=== PATIENT | female | born 1945 | race Caucasian/White ===

== ENCOUNTER 2017-05-22 07:32 | Day surgery (SDC) | payer MEDICARE, BC ==
[2017-05-22] MEDS ORDERED: Lactated Ringers 1,000 ML IV SCH (08:15)
[2017-05-22] MEDS ORDERED: Propofol 200 MG/20 ML SDV ONE (09:13)
[2017-05-22] MEDS ORDERED: fentaNYL 100 MCG/2 ML SDV ONE (09:13)
[2017-05-22] MEDS ORDERED: Midazolam 1 MG/ML 2 ML SDV ONE (09:13)
[2017-05-22 10:59] VITALS: BP 110/71
--- NOTE | 2017-05-23 08:55 | OR ---
DATE OF PROCEDURE: 05/22/2017 PREOPERATIVE DIAGNOSIS: Colon cancer screening. POSTOPERATIVE DIAGNOSIS: Two small colon polyps, 35 cm from anal verge and right colon. PROCEDURE PERFORMED: Colonoscopy to the cecum with biopsy resection of two small colon polyps. SURGEON: Reed Aquino MD ANESTHESIA: IV anesthesia with monitored anesthesia care. INDICATIONS: This 72-year-old white female is referred for a colonoscopy for colon cancer screening. She says her last colonoscopic exam, she believes was more than 10 years ago in [place]. I counseled her for the procedure including the risks and alternatives , and she gave her informed consent to proceed. DESCRIPTION OF PROCEDURE: The patient was placed in the left lateral decubitus position. IV anesthesia was administered by the Anesthesia Service. Time-out was held. A rectal exam was performed, which was unremarkable. The flexible video Olympus colonoscope was introduced through her anus, up her rectum, and out her colon all the way to the cecum. En route, at 35 cm from anal verge, we saw a small polyp, which was removed with the biopsy forceps. Once the cecum was reached, the scope was slowly withdrawn. In the right colon, we saw a small polyp, which was removed with the biopsy forceps and sent to Pathology. The scope was withdrawn further with no other lesions noted. The scope was retroflexed in the rectum with the distal rectum appearing unremarkable. The scope was straightened and removed. She tolerated the procedure well. Reed Aquino MD /[id number]
== END 2017-05-22 11:15 | disposition home or self-care (01) ==
LOC: JP.SDS 07:32
PROVIDERS: ATTEND Surgery
DX: Z12.11 Encounter for screening for malignant neoplasm of colon (principal); D12.2 Benign neoplasm of ascending colon; D12.6 Benign neoplasm of colon, unspecified; I10 Essential (primary) hypertension; K21.9 Gastro-esophageal reflux disease without esophagitis
CPT/HCPCS: 45380; J2250; J2704; J3010; J7120; 88305

== ENCOUNTER 2017-07-18 07:09 | Day surgery (SDC) | payer MEDICARE, BC ==
[2017-07-18] MEDS ORDERED: Dextrose 5%-Lactated Ringers 1,000 ML IV SCH (08:00)
--- NOTE | 2017-07-18 08:43 | CR ---
Wrist Comp Min 3V Rt HISTORY: fell at home, right wrist pain and edema FINDINGS: There is a mildly comminuted and impacted transverse fracture distal metaphysis right radiu s. Mild dorsal angulation and about 7 mm of dorsal displacement are seen. There is also a minimally d isplaced oblique fracture styloid process of the ulna. No other fracture or dislocation is identified . Carpal bone alignment is satisfactory. Surgical pin is noted at the base of the first metacarpal. B rj structures are diffusely osteopenic. IMPRESSION: Acute Colles' fracture right wrist. The fracture of the distal metaphysis right radius is mildly comminuted and impacted with dorsal displacement and angulation. Styloid process fracture of the ulna is minimally displaced. Generalized osteopenia is noted.
[2017-07-18] MEDS ORDERED: Glycopyrrolate 0.2 MG/ML 2 ML SDV IVPUSH ONE (08:45)
[2017-07-18] MEDS ORDERED: Midazolam 1 MG/ML 2 ML SDV ONE (10:29)
[2017-07-18] MEDS ORDERED: fentaNYL 100 MCG/2 ML SDV ONE (10:29)
[2017-07-18] MEDS ORDERED: Propofol 200 MG/20 ML SDV ONE (10:29)
[2017-07-18] MEDS ORDERED: Lidocaine 1% 2 ML ONE (11:47)
[2017-07-18 13:07] VITALS: BP 136/83
[2017-07-18] MEDS ORDERED: Acetaminophen/HYDROcodone 325-5 MG Tab PO ONE (13:20)
--- NOTE | 2017-07-18 13:42 | CR ---
Wrist 2V Rt HISTORY: FX RIGHT WRIST REDUCTION IN OR FINDINGS: A single portable PA view was obtained. Transverse fracture distal metaphysis right radius and nondisplaced ulnar styloid fracture are redemonstrated. Alignment in this view appears satisfacto ry. I cannot evaluate for reduction of the dorsal displacement and angulation seen on the prior study as a lateral view was not obtained.
--- NOTE | 2017-07-26 14:57 | OR ---
DATE OF PROCEDURE: 07/18/2017 PREOPERATIVE DIAGNOSIS: Iron-deficiency anemia associated with positive FIT test. POSTOPERATIVE DIAGNOSES: 1. Iron-deficiency anemia associated with positive FIT test. a. Normal upper gastrointestinal endoscopy status post Robin-en-Y gastric bypass. b. Normal colonoscopic examination. OPERATIVE PROCEDURES: 1. Upper gastrointestinal endoscopy with biopsies of gastric pouch for CLOtest. 2. Flexible colonoscopy. ANESTHESIA: IV sedation. INDICATION FOR PROCEDURE: A 72-year-old presenting with some iron deficiency anemia with positive FIT test. She is undergoing upper and lower endoscopy with biopsies and/or polypectomy as indicated. Potential risks including bleeding and perforation were discussed, and the patient wishes to proceed. The patient, on coming to the hospital in the morning, fell and had an obvious Colles' fracture involving the right wrist. After being seen in the ER, decision was made to do a closed reduction of the Colles' fracture, at the same time as doing the upper and lower endoscopy. Potential risks of the procedure including bleeding and perforation were discussed and the patient wishes to proceed. DETAILS OF PROCEDURE: The patient was taken to the operating room and placed initially in a supine position. Colles' fracture was then reduced per Officer, and after actual confirmation of adequate reduction was accomplished, fixation was applied and that phase of the procedure concluded. This will be dictated in a separate heading per Officer. With the patient in left lateral decubitus position with care taken to avoid any significant manipulation of the right forearm and wrist, the upper GI endoscope was passed orally through the length of the esophagus into the gastric pouch and from there roughly 20 cm into the Robin limb. This examination was essentially entirely normal with their being no stricturing or areas of inflammation, no blood or bleeding. The biopsies were obtained from the gastric pouch, sent for CLOtest for H. pylori. Minimal bleeding from the biopsy site was seen. The procedure then concluded. Attention was then taken to the colonoscopy. Initial digital rectal exam was performed and was unremarkable. Colonoscope was passed into the level of the rectum with retroflexion revealing uncomplicated hemorrhoidal columns. The scope was eventually passed to the level of the cecum. The prep was generally good with there only being some scattered liquid and solid stool present. To that level, no abnormalities were noted. Specifically, there was no blood or bleeding and no areas of diverticular disease. No colitis and no polyps or other signs of neoplasia. The scope was then withdrawn, the above findings reconfirmed, and the procedure was concluded. The patient was taken to the recovery room in satisfactory condition. Kevon Rangel MD /[id number]
== END 2017-07-18 14:17 | disposition home or self-care (01) ==
LOC: JP.SDS 07:09
PROVIDERS: ATTEND Surgery
DX: D50.9 Iron deficiency anemia, unspecified (principal); R19.5 Other fecal abnormalities; S52.531A Colles' fracture of right radius, initial encounter for closed fracture; W19.XXXA Unspecified fall, initial encounter
CPT/HCPCS: 73100-26-RT; 73100-RT; 73110-26-RT; 73110-RT; 87081; A9270-GY; J2250; J2704; J3010; J7042

== ENCOUNTER 2017-07-18 09:00 | Emergency (ER) | payer MEDICARE, BC ==
[2017-07-18 09:14] VITALS: BP 129/81
[2017-07-18] MEDS ORDERED: HYDROmorphone 1 MG/ML Syringe IVPUSH ONE (10:00)
--- NOTE | 2017-07-18 11:20 | EDM.PDOC ---
ED HPI GENERAL MEDICAL PROBLEM - General Chief Complaint: Upper Extremity Injury/Pain Stated Complaint: MEDICAL FROM ACU Time Seen by Provider: 07/18/17 10:00 Source of Information: Reports: Patient, Family, RN Notes Reviewed History Limitations: Reports: No Limitations - History of Present Illness INITIAL COMMENTS - FREE TEXT/NARRATIVE: 72-year-old female presents emergency department today with a right wrist fracture, she was set to undergo colonoscopy this morning unfortunately she had fallen at home on outstretched hand right side injured herself reported for colonoscopy the procedure was canceled underwent x-ray which demonstrated a acute Colles' fracture slightly comminuted radius. Subsequent transferred to the emergency department for further evaluation. Right Wrist Pain Score (Numeric/FACES): 10 - Related Data Allergies Allergy/AdvReac Type Severity Reaction Status Date / Time lisinopril Allergy Swollen Verified 07/18/17 07:45 Tongue Home Meds: Home Meds Gabapentin [Gabapentin] 100 mg PO BID 12/08/16 [History] Hydrochlorothiazide [Hydrochlorothiazide] 25 mg PO DAILY 12/08/16 [History] Omeprazole [Omeprazole] 20 mg PO DAILY 12/08/16 [History] buPROPion HCl [Bupropion Xl] 200 mg PO BID 12/08/16 [History] Aspirin [Adult Low Dose Aspirin EC] 81 mg PO DAILY 05/21/17 [History] Calcium Citrate/Vitamin D3 [Calcium Citrate - Vit D Caplet] 1 each PO BID [History] Cholecalciferol (Vitamin D3) [Vitamin D3] 1,000 unit PO BID 05/21/17 [History] Cyanocobalamin (Vitamin B-12) [Cyanocobalamin Injection] 1,000 mcg IJ .QWEEKLY 05/21/17 [History] Cyanocobalamin (Vitamin B-12) [Vitamin B-12] 2,500 mcg SL DAILY 05/21/17 [ History] Multivitamin with Minerals [Multiple Vitamin] 1 tab PO DAILY 05/21/17 [History] Estradiol [Estrace] 1 mg PO DAILY 07/16/17 [History] FLUoxetine HCl [Prozac] 40 mg PO DAILY 07/16/17 [History] Iron Vitamin C 1 tab PO DAILY 07/16/17 [History] Past Medical History HEENT History: Reports: Cataract, Impaired Vision Cardiovascular History: Reports: Hypertension Gastrointestinal History: Reports: Bowel Obstruction, Cholelithiasis, GERD PROVIDER NETWORK MGR History: Reports: , Spontaneous Musculoskeletal History: Reports: Arthritis, Fibromyalgia Psychiatric History: Reports: Anxiety, Depression, Panic Attack Endocrine/Metabolic History: Reports: Diabetes, Type II Hematologic History: Reports: B12 Deficiency Oncologic (Cancer) History: Reports: Other (See Below) Other Oncologic History: side of face not sure - Infectious Disease History Infectious Disease History: Reports: Chicken Pox, Measles, Mumps - Past Surgical History HEENT Surgical History: Reports: Cataract Surgery Cardiovascular Surgical History: Reports: None GI Surgical History: Reports: Appendectomy, Bariatric Procedure, Cholecystectomy , Colonoscopy, EGD, Esophageal Dilatation, Small Bowel Female Surgical History: Reports: Breast Biopsy, Hysterectomy, Salpingo- Oophorectomy Endocrine Surgical History: Reports: None Musculoskeletal Surgical History: Reports: Carpal Tunnel Oncologic Surgical History: Reports: Other (See Below) Other Oncologic Surgeries/Procedures: side of face Social & Family History - Family History Family Medical History: Noncontributory - Tobacco Use Smoking Status *Q: Never Smoker Second Hand Smoke Exposure: No - Caffeine Use Caffeine Use: Reports: Coffee - Alcohol Use Days Per Week of Alcohol Use: 0 Number of Drinks Per Day: 2 Total Drinks Per Week: 0 - Recreational Drug Use Recreational Drug Use: No Review of Systems - Review of Systems Review Of Systems: See Below Constitutional: Reports: No Symptoms Musculoskeletal: Reports: Joint Pain (Right wrist) Skin: Reports: Bruising Neurological: Reports: No Symptoms ED EXAM, GENERAL - Physical Exam Exam: See Below Free Text/Narrative:: Examination of the upper extremity on the right side there is no tenderness at the shoulder no tenderness at the elbow there is an obvious deformity at the right wrist with bruising and ecchymosis appreciated around the wrist she has full range of motion of all digits although limited by pain, radial pulse is +2 and sensation is intact Exam Limited By: No Limitations General Appearance: Alert, WD/WN, No Apparent Distress ED TRAUMA EXTREMITY PROCEDURES - Splinting Right Upper Extremity Splint Site: Wrist Pre-Procedure NV Status: Normal Post-Procedure NV Status: Normal Splint Material: Fiberglass Splint Design: Volar Applied & Form Fitted By: Provider Provider Post-Splint Application NV Check: NV Status Normal, Good Position Complications: No Progress/Comments: Elected to perform this procedure in the colonoscopy suite as her fracture did require some post reduction, this was done per anesthesia's recommendation asked to be only under the effects of anesthesia one time. Please see TEMPERATURE REGULATOR notes for details, after adequate anesthesia a traction countertraction technique was used to align the distal radius pedal pulse was +2 after good position post reduction film was placed followed by splinting process in the usual fashion Course - Vital Signs Last Recorded V/S: Last Vital Signs Temp 96.3 F 07/18/17 09:23 Pulse 67 07/18/17 09:23 Resp 16 07/18/17 09:23 BP 129/81 07/18/17 09:23 Pulse Ox 97 07/18/17 09:23 - Orders/Labs/Meds Meds: Medications Discontinued Medications Generic Name Dose Route Start Last Admin Trade Name Berta PRN Reason Stop Dose Admin Hydromorphone HCl 1 mg 07/18/17 10:00 07/18/17 10:08 Dilaudid IVPUSH 07/18/17 10:01 1 mg ONETIME ONE Administration Departure - Departure Time of Disposition: 11:20 Disposition: Still A Patient 30 Condition: Good Clinical Impression: Colles' fracture of right radius, initial encounter for closed fracture - Discharge Information Referrals: Lizet Lopez PA [Primary Care Provider] - - Assessment/Plan Plan: Assessment Acuity = acute Site and laterality = distal radius fracture mildly displaced and comminuted Etiology = secondary to a fall at home Manifestations = pain and bruising Location of injury = Home Lab values = x-rays describe the fractures above Plan After splint was placed while under anesthesia, the original planned procedure of colonoscopy and EGD were proceeded with, she does have a follow-up appointment with orthopedics in 1 week she will remain in the splint at that time Patient was in agreement with the plan all questions were answered, they were instructed to return to the emergency department or call for worsening symptoms. This note was dictated using Connect voice recognition software please call with any questions.
== END 2017-07-18 10:23 | disposition still patient (30) ==
LOC: JP.ED 09:00
DX: S52.531A Colles' fracture of right radius, initial encounter for closed fracture (principal); I10 Essential (primary) hypertension; K21.9 Gastro-esophageal reflux disease without esophagitis; F41.0 Panic disorder [episodic paroxysmal anxiety]; F32.9 Major depressive disorder, single episode, unspecified; E11.9 Type 2 diabetes mellitus without complications; Z98.84 Bariatric surgery status; Z90.49 Acquired absence of other specified parts of digestive tract; Z90.710 Acquired absence of both cervix and uterus; Z90.721 Acquired absence of ovaries, unilateral; Z98.890 Other specified postprocedural states; Z79.82 Long term (current) use of aspirin; Z79.899 Other long term (current) drug therapy; Z88.8 Allergy status to other drugs, medicaments and biological substances; W01.0XXA Fall on same level from slipping, tripping and stumbling without subsequent striking against object, initial encounter; Y92.009 Unspecified place in unspecified non-institutional (private) residence as the place of occurrence of the external cause
CPT/HCPCS: 25605; 29125; 73100; 73110; 87081; 96374; 99284; A9270; J1170; J2250; J2704; J3010; J7042

== ENCOUNTER 2017-07-30 06:24 | Day surgery (SDC) | payer MEDICARE, BC ==
[2017-07-30] MEDS ORDERED: Lactated Ringers 1,000 ML IV SCH (07:00)
[2017-07-30] MEDS ORDERED: ceFAZolin 2 GM in Premix Bag 1 BAG IV ONE (07:00)
[2017-07-30] MEDS ORDERED: ceFAZolin 2 GM in Sodium Chloride 0.9% 50 ML IV ONE (07:00)
[2017-07-30] MEDS ORDERED: Povidone-Iodine 10% Soln 118.25 ML Bottle ONE (07:02)
[2017-07-30] MEDS ORDERED: Bupivacaine 0.5% 50 ML MDV ONE (07:02)
[2017-07-30] MEDS ORDERED: Rocuronium 50 MG/5 ML Vial ONE (07:17)
[2017-07-30] MEDS ORDERED: Propofol 200 MG/20 ML SDV ONE (07:17)
[2017-07-30] MEDS ORDERED: Ondansetron 4 MG/2 ML SDV ONE (07:17)
[2017-07-30] MEDS ORDERED: Glycopyrrolate 0.2 MG/ML 5 ML MDV ONE (07:17)
[2017-07-30] MEDS ORDERED: Neostigmine Methylsulfate 1 MG/ML 5 ML Syringe ONE (07:17)
[2017-07-30] MEDS ORDERED: Succinylcholine 200 MG/10 ML MDV ONE (07:17)
[2017-07-30] MEDS ORDERED: Dexamethasone 4 MG/ML SDV ONE (07:17)
[2017-07-30] MEDS ORDERED: fentaNYL 100 MCG/2 ML SDV IVPUSH ONE (09:10)
[2017-07-30 10:01] VITALS: BP 159/85
--- NOTE | 2017-07-31 11:47 | OR ---
DATE OF PROCEDURE: 07/30/2017 PREOPERATIVE DIAGNOSIS: Right distal radius fracture. POSTOPERATIVE DIAGNOSIS: Right distal radius fracture. PROCEDURES: 1. Open reduction and internal fixation of right distal radius fracture. 2. Application of short-arm splint. LICENSED FUNERAL DIRECTOR AND EMBALMER: CAITLIN Robledo. ANESTHESIA: General endotracheal intubation. FLUID: Lactated Ringer solution. ESTIMATED BLOOD LOSS: Less than 10 mL. COMPLICATIONS: None. SPECIMEN: None. DISCHARGE DISPOSITION: Stable to PACU. INDICATIONS FOR PROCEDURE: The patient was seen preoperatively in the clinic. She was then reduced in the ER. Unfortunately, by the time she made it to the clinic, she lost reduction of her distal radius fracture. Preoperative imaging confirmed the above-mentioned diagnosis. Risks and benefits of the procedure were explained to the patient. Informed consent was obtained. DETAILS OF PROCEDURE: The patient was seen preoperatively by myself and the Anesthesia staff in the preoperative holding area, where the operative site was marked. She was brought into the operative suite by the Anesthesia staff, where general anesthesia was administered. A well-padded tourniquet was placed on the right arm. The right upper extremity was prepped and draped in a sterile manner. Time-out was called identifying the correct patient, the correct procedure, the correct site, and that antibiotics had begun within appropriate period of time. The right upper extremity was then exsanguinated. Tourniquet was raised to 250 mmHg and let down after closure. A longitudinal incision was made from the radiocarpal joint over the flexor carpi radialis tendon, approximately 8 cm, and carried down to the tendon. Bleeding was controlled with Bovie electrocautery. I then used a knife to go through the volar and dorsal aspect of the tendon sheath, and then retracted the tendons ulnarly and the radial artery radially. I then elevated the pronator using sharp dissection and exposed the distal radius. I then used a [place] to go in between the fragments and reduced the fracture. I then placed a small plate and drilled 2 cortical screws to hold it in place and confirmed this with the sterilely draped fluoroscopy unit. I then drilled my distal row with fully cortical screws, and this reduced the distal fragment to the plate nicely. I then filled out the remainder of the distal and proximal row and then took final films. We then irrigated and then closed with 2-0 Vicryl and 3-0 nylon, followed by a sterile dressing, followed by a short-arm splint. The patient was then allowed to awaken and taken to the PACU in a stable condition. Physician medical technician assistant, Edie Simon NP, played an essential role in assisting in this case, helping to position the patient, retract structures as needed, as well as suturing and cutting sutures as indicated. Her presence improved patient's safety and decreased operative time. Luis Carlos Rangel DO /[id number]
== END 2017-07-30 10:25 | disposition home or self-care (01) ==
LOC: JP.SDS 06:24
PROVIDERS: ATTEND Orthopaedic Surgery
DX: S52.531A Colles' fracture of right radius, initial encounter for closed fracture (principal); S52.611A Displaced fracture of right ulna styloid process, initial encounter for closed fracture; I10 Essential (primary) hypertension; M19.90 Unspecified osteoarthritis, unspecified site; M79.7 Fibromyalgia; F41.9 Anxiety disorder, unspecified; F32.9 Major depressive disorder, single episode, unspecified; E11.9 Type 2 diabetes mellitus without complications; E53.8 Deficiency of other specified B group vitamins; X50.9XXA Other and unspecified overexertion or strenuous movements or postures, initial encounter; Z79.82 Long term (current) use of aspirin; Z79.899 Other long term (current) drug therapy; Z98.49 Cataract extraction status, unspecified eye; Z98.84 Bariatric surgery status; Z90.49 Acquired absence of other specified parts of digestive tract; Z90.710 Acquired absence of both cervix and uterus; Z90.721 Acquired absence of ovaries, unilateral; Z90.79 Acquired absence of other genital organ(s); Z98.890 Other specified postprocedural states
CPT/HCPCS: 25608; 76000; C1713; J0690; J1100; J2405; J2704; J3010; J7050; J7120; 25607; C1776; J0330; J2710

== ENCOUNTER 2020-07-18 10:14 | Day surgery (SDC) | payer MEDICARE, BC ==
[2020-07-18] MEDS ORDERED: fentaNYL 100 MCG/2 ML SDV ONE ×2 (10:57→11:13)
[2020-07-18] MEDS ORDERED: Midazolam 1 MG/ML 2 ML SDV ONE ×2 (10:57→11:13)
[2020-07-18] MEDS ORDERED: Propofol 200 MG/20 ML SDV ONE ×2 (10:57→11:13)
[2020-07-18] MEDS ORDERED: Sodium Chloride 0.9% 1,000 ML IV SCH (11:00)
[2020-07-18 13:32] VITALS: BP 135/84; PULSE 69
--- NOTE | 2020-07-18 14:31 | OR ---
DATE OF PROCEDURE: 07/18/2020 SURGEON: Jony Ferrari MD PROCEDURE: Colonoscopy. FINDINGS: Ascending colon polyp, approximately 5 mm, completely removed using cold biopsy forceps. COMPLICATIONS: None. ELEVATOR CONSTRUCTOR HELPER: None. ANESTHETIC: MAC. RISKS: Risks, benefits, alternatives, and limitations including, but not limited to infection, bleeding, perforation were explained to the patient, who wished to proceed. PROCEDURE IN DETAIL: The patient was placed in left lateral decubitus position. Digital rectal exam was performed without abnormality. Scope was introduced and advanced atraumatically to the ileocecal valve. In the ascending colon, approximately 5 mm polyp was identified and completely removed using cold biopsy forceps. No evidence of old or new blood was noted. No masses. No other polyps. No diverticulosis. No abnormalities on retroflexion. The patient tolerated the procedure well. Greater than 8 minutes was spent removing the scope. Jony Ferrari MD /[id number]
== END 2020-07-18 13:15 | disposition home or self-care (01) ==
LOC: JP.SDS 10:14
PROVIDERS: ATTEND Surgery
DX: Z12.11 Encounter for screening for malignant neoplasm of colon (principal); D12.2 Benign neoplasm of ascending colon; I10 Essential (primary) hypertension; E11.9 Type 2 diabetes mellitus without complications; Z86.010 Personal history of colon polyps; Z88.8 Allergy status to other drugs, medicaments and biological substances
CPT/HCPCS: 45380; J2250; J2704; J3010; J7030

== ENCOUNTER 2021-11-06 07:46 | Day surgery (SDC) | payer MEDICARE, BC ==
[2021-11-06] MEDS ORDERED: Propofol 200 MG/20 ML SDV ONE ×3 (08:49→10:49)
[2021-11-06] MEDS ORDERED: fentaNYL 100 MCG/2 ML SDV ONE (08:49)
[2021-11-06] MEDS ORDERED: Dextrose 5%-Lactated Ringers 1,000 ML IV SCH (08:52)
[2021-11-06 08:54] LABS: CORONAVIRUS COVID-19 NAA NEGATIVE (NEGATIVE)
[2021-11-06 12:29] VITALS: BP 158/74; PULSE 64
--- NOTE | 2021-11-07 21:01 | OR ---
DATE OF PROCEDURE: 11/06/2021 SURGEON: Kevon Rangel MD PREOPERATIVE DIAGNOSIS: CT suggestive of possible ascending colon mass. POSTOPERATIVE DIAGNOSIS: Two polyps involving cecum and ascending colon with no overt malignant-appearing mass. OPERATIVE PROCEDURE: Flexible colonoscopy with: 1. Removal of cecal polyp by cold biopsy forceps. 2. Removal of the ascending colon polyp by snare technique. ANESTHESIA: IV sedation. INDICATIONS FOR PROCEDURE: This is a 76-year-old female presenting with a CT scan showing what appears to be annular constricting lesion in the area of the distal hepatic flexure per the CT report. The CT details clearly describe this as being below the hepatic flexure i.e. ascending colon and was referred as ascending colon lesion in the text, but the final summary refers to as a descending colon, which was probably the computer error. The CT was reviewed by myself and the area of potential narrowing was identified near the hepatic flexure. Plan is to proceed with flexible colonoscopy with biopsies and polypectomy. Potential risks including bleeding and perforation were discussed, and the patient wishes to proceed. DETAILS OF PROCEDURE: The patient was taken to the operating room and placed in the left lateral decubitus position. IV sedation was administered, after which the initial digital rectal exam was performed and was unremarkable. Colonoscope was then passed into the level of the rectum with retroflexion revealing uncomplicated hemorrhoidal columns. Scope was passed with some difficulty to the level of the cecum, this was confirmed by visualization of the ileocecal valve. The patient was noted not to have any other constricting lesion. There were 2 small polyps, one in the base of the cecum measuring only around 1 to 2 mm and larger one in ascending colon measuring about 1 cm. The smaller one in the cecum was removed with biopsy forceps and the ascending colon polyp was removed by cautery snare technique, both were sent separately for histologic evaluation. Apart from that, there was no additional pathology. Prep was quite good with only small amount of liquid stool present. The scope was then withdrawn and the procedure then concluded. We will notify the patient regarding the pathology report. Kevon Rangel MD /[id number]
== END 2021-11-06 12:30 | disposition home or self-care (01) ==
LOC: JP.SDS 07:46
PROVIDERS: ATTEND Surgery
DX: D12.0 Benign neoplasm of cecum (principal); K64.9 Unspecified hemorrhoids; I10 Essential (primary) hypertension; K21.9 Gastro-esophageal reflux disease without esophagitis; E66.9 Obesity, unspecified; Z88.8 Allergy status to other drugs, medicaments and biological substances; Z01.812 Encounter for preprocedural laboratory examination; Z20.822 Contact with and (suspected) exposure to COVID-19; Z68.44 Body mass index [BMI] 60.0-69.9, adult
CPT/HCPCS: 0241U; 45380; 45385; 88305; J2704; J3010; J7121